=== PATIENT | female | born 1990 | race Caucasian/White ===

== ENCOUNTER 2020-07-06 06:01 | Emergency (ER) | payer MEDICAID ==
[~2020-07-06] VITALS: Ht 165.1 cm; Wt 90.9 kg
[2020-07-06 06:12] VITALS: BP 129/89
[2020-07-06] MEDS ORDERED: acetaminophen 325mg tablet PO ONE ×2 (06:20)
== END 2020-07-06 06:38 | disposition home or self-care (01) ==
LOC: ER 06:02
DX: S93.491A Sprain of other ligament of right ankle, initial encounter (principal); W17.89XA Other fall from one level to another, initial encounter; Y93.89 Activity, other specified; Y92.828 Other wilderness area as the place of occurrence of the external cause; Y99.8 Other external cause status
CPT/HCPCS: 99283